=== PATIENT | male | born 1995 | race African-American/Black ===

== ENCOUNTER 2017-02-06 17:01 | Emergency (ER) | payer SELFPAY ==
[~2017-02-06] VITALS: Ht 185.4 cm; Wt 74.5 kg
[2017-02-06 20:02] VITALS: BP 121/79
== END 2017-02-06 20:03 | disposition home or self-care (01) ==
LOC: ER 17:03
DX: L03.213 Periorbital cellulitis (principal); B37.0 Candidal stomatitis; F17.210 Nicotine dependence, cigarettes, uncomplicated; F12.10 Cannabis abuse, uncomplicated; Z20.6 Contact with and (suspected) exposure to human immunodeficiency virus [HIV]
CPT/HCPCS: 99283